=== PATIENT | female | born 1965 | race Caucasian/White ===

== ENCOUNTER 2024-03-18 06:00 | Day surgery (SDC) | payer OTHER ==
[~2024-03-18 06:00] MED LIST: Sodium Chloride 0.9% 10 ML Syringe FLUSH PRN; Sodium Chloride 0.9% 10 ML Syringe FLUSH SCH
[2024-03-18] MEDS: Lactated Ringers 1,000 ML IV SCH (06:15)
[2024-03-18] MEDS ORDERED: Midazolam 1 MG/ML 2 ML SDV ONE (06:35)
[2024-03-18] MEDS ORDERED: fentaNYL 100 MCG/2 ML SDV ONE (06:35)
[2024-03-18] MEDS ORDERED: Propofol 200 MG/20 ML SDV ONE (06:35)
[2024-03-18] MEDS ORDERED: Lidocaine 1% 5 ML VIAL ONE (06:35)
[2024-03-18] MEDS: Lidocaine 1% 10 ML MDV ONE (07:05)
[2024-03-18] MEDS: Bupivacaine 0.25% 10 ML SDV ONE (07:05)
[2024-03-18] MEDS ORDERED: Ketorolac 30 MG/ML SDV ONE (07:08)
== END 2024-03-18 08:00 | disposition home or self-care (01) ==
LOC: JD.SDS 06:00
PROVIDERS: ATTEND Orthopaedic Surgery
DX: G56.11 Other lesions of median nerve, right upper limb (principal); I10 Essential (primary) hypertension; Z79.82 Long term (current) use of aspirin; Z79.899 Other long term (current) drug therapy
CPT/HCPCS: 64721; J1885; J2250; J2704; J3010; J3490; J7120; 01810; J0665